=== PATIENT | male | born 1950 | race Caucasian/White ===

== ENCOUNTER 2020-08-16 07:53 | Outpatient (CLI) | payer MEDICARE, SELFPAY ==
--- NOTE | ~2020-08-16 | XR_ITS ---
XR lumbar spine 2-3V 08/16/2020 08:18 Indication: Low back pain for 2 years. Previous vertebral fracture. Procedure: 3 views lumbar spine Comparison: CT dated 03/28/2018 Findings: There are treated mild compression fractures of T11 and L1 with vertebroplasty changes. The re is disc narrowing at L3-4. Small ventral osteophytes at multiple levels. Mild lower lumbar facet h ypertrophy. No acute fracture is identified. There are cholecystectomy clips. Impression: 1: Chronic treated compression fractures of T11 and L1. 2: Mild lumbar spondylosis. Reviewed, dictated and finalized at location B. Impression: 1: Chronic treated compression fractures of T11 and L1. 2: Mild lumbar spondylosis.
== END 2020-08-16 07:54 | disposition home or self-care (01) ==
PROVIDERS: PCP Internal Medicine; Visit Provider Nurse Practitioner
DX: M54.5 Low back pain (principal); G89.29 Other chronic pain; S22.080A Wedge compression fracture of T11-T12 vertebra, initial encounter for closed fracture; M47.816 Spondylosis without myelopathy or radiculopathy, lumbar region
CPT/HCPCS: 72100

== ENCOUNTER 2021-12-19 16:09 | Emergency (ER) | payer MEDICARE, SELFPAY ==
--- NOTE | ~2021-12-19 | US_ITS ---
EXAMINATION: US venous doppler LE RT DATE: 12/19/2021 17:41 INDICATION: Right lower limb pain and swelling TECHNIQUE: Ruiz scale images without and with compression and Doppler images of the right lower extre mity veins were obtained. COMPARISON: 04/10/2018 FINDINGS: The right common femoral vein, profunda femoral vein, femoral vein, popliteal vein, peronea l trunk, posterior tibial veins, and greater saphenous vein are patent. IMPRESSION: 1. Patent right lower extremity veins. No evidence of deep venous thrombosis. Reviewed, dictated and finalized at location F. OO TECHNICIAN
[2021-12-19 16:22] VITALS: BP 179/76; PULSE 90; RESP 18; TEMP 36.6; O2SAT 100
--- NOTE | 2021-12-19 17:25 | ED.GENADULT ---
HPI - General Adult General Chief complaint: Extremity Problem,Nontraumatic Stated complaint: leg pain, r/o DVT Time Seen by Provider: 12/19/21 17:15 History of Present Illness HPI narrative: Patient is a 71-year-old gentleman who presents the emergency department with chief complaint of right leg pain. Patient reports that he has history of DVTs on the left lower extremity in the past in his left leg. The patient reports he is currently not on any anticoagulants reported that he noticed kind of an uncomfortable feeling in the posterior aspect of his right calf. Patient states due to his history of DVT he was concerned that he may have developed another 1 patient denies swelling denies shortness of breath denies chest pain. Related Data Home Medications Medication Instructions Recorded Confirmed aspirin 81 mg tablet,delayed 81 mg PO DAILY 01/24/20 01/29/21 release coenzyme Q10 100 mg capsule 100 mg PO DAILY 08/01/20 01/29/21 omega-3 fatty acids 1,000 mg 1,000 mg PO DAILY 08/01/20 01/29/21 capsule cholecalciferol (vitamin D3) 125 125 mcg PO DAILY 08/13/21 mcg (5,000 unit) capsule Allergies Allergy/AdvReac Type Severity Reaction Status Date / Time No Known Allergies Allergy Verified 12/19/21 16:24 Review of Systems Review of Systems: A 10 system review of systems was completed on the patient and is negative except for what is stated in the HPI. Nursing and ancillary documentation was reviewed. [facility] Past Medical History Medical History Actinic keratoses Anxiety Degenerative arthritis of knee, bilateral DM w/o complication type II History of CVA in adulthood Hx of optic neuritis Other and unspecified hyperlipidemia Recurrent deep vein thrombosis (DVT) Family History Family History Mother Family history of elevated blood lipids Father Family history of heart disease in male family member before age 55 Other Acute myocardial infarction Family history of coronary artery disease Social History Social History Smoking status: Former smoker Tobacco type: cigarettes Second hand tobacco smoke exposure: No Smoking end date: 11/29/00 Alcohol intake: current Substance use: never Substance use type: does not use Exam Narrative: GENERAL: Well-appearing, well-nourished, and in no acute distress. HEAD: Normocephalic, atraumatic. EYES: PERRLA and EOMI. ENT: Nares clear, no rhinorrhea or epistaxis. Mucous membranes moist. NECK: Supple. CHEST: Clear to auscultation. No respiratory distress. HEART: Regular rate and rhythm. No murmur heard. Normal peripheral pulses. ABDOMEN: Soft, nontender, nondistended, normal active bowel sounds. EXTREMITIES: Normal range of motion. No edema. SKIN: Warm, dry, no rash. NEURO: No focal deficits. Alert and oriented x3. PSYCH: Normal mood and affect. Course Vital Signs Vital signs: Vital Signs Temperature 36.6 C 12/19/21 16:22 Pulse Rate 90 12/19/21 16:22 Respiratory Rate 18 12/19/21 16:22 Blood Pressure 179/76 H 12/19/21 16:22 Pulse Oximetry 100 12/19/21 16:22 Temperature 36.6 C 12/19/21 16:22 Pulse Rate 90 12/19/21 16:22 Respiratory Rate 18 12/19/21 16:22 Blood Pressure 179/76 H 12/19/21 16:22 Pulse Oximetry 100 12/19/21 16:22 Medical Decision Making Vital Signs Vital Signs: Vital Signs Temperature 36.6 C 12/19/21 16:22 Pulse Rate 90 12/19/21 16:22 Respiratory Rate 18 12/19/21 16:22 Blood Pressure 179/76 H 12/19/21 16:22 Pulse Oximetry 100 12/19/21 16:22 Temperature 36.6 C 12/19/21 16:22 Pulse Rate 90 12/19/21 16:22 Respiratory Rate 18 12/19/21 16:22 Blood Pressure 179/76 H 12/19/21 16:22 Pulse Oximetry 100 12/19/21 16:22 Lab Data Result diagrams: 12/19/21 17:25
[2021-12-19 17:42] LABS: Basophils Percent Auto 0.6 % (0.2-1.2); Eosinophils Absolute Auto 0.4 K/mm3 (0-0.3); Eosinophils Percent Auto 5.5 % (0-4.4); Hematocrit 43.7 % (42.0-52.0); Hemoglobin 14.4 g/dL (14.0-18.0); Immature Granulocyte Absolute 0.02 K/mm3 (0.00-0.031); Immature Granulocyte Percent A 0.3 % (0-0.5); Lymphocytes Absolute Auto 2.11 K/mm3 (0.9-3.2); Lymphocytes Percent Auto 30.7 % (18.3-44.2); Mean Corpuscular Hemoglobin 30.6 pg (26-34); Mean Platelet Volume 9.8 fl (7.4-10.4); Monocytes Absolute Auto 0.5 K/mm3 (0.1-0.6); Monocytes Percent Auto 7.8 % (2.6-8.5); Neutrophils Absolute Auto 3.8 K/mm3 (1.3-6.7); Neutrophils Percent Auto 55.1 % (45.5-73.1); Platelet Count Result 226 k/mm3 (150-375); Red Cell Distribution Width 13.3 % (11.5-14.5); White Blood Count 6.9 K/mm3 (4.5-10.0)
[2021-12-19 17:51] LABS: Alanine Aminotransferase 27 U/L (4-50); Albumin Level 4.6 g/dL (3.5-5.1); Alkaline Phosphatase 59 U/L (38-126); Anion Gap 14 mmol/L (8-16); Aspartate Amino Transferase 38 U/L (17-59); Bilirubin,Total 0.6 mg/dL (0.2-1.3); Blood Urea Nitrogen 18 mg/dL (9-20); Calcium 9.8 mg/dL (8.4-10.2); Carbon Dioxide 23 mmol/L (22-30); Chloride 103 mmol/L (98-107); Estimated CRCL calculation 71 ml/min; Estimated Glomerular Filt Rate > 60; Glucose 116 mg/dL (65-110); Potassium 4.2 mmol/L (3.4-5.0); Sodium 140 mmol/L (137-145)
[2021-12-19 17:53] LABS: Prothrombin Time 13.4 Seconds (11.1-14.7)
== END 2021-12-19 18:22 | disposition home or self-care (01) ==
LOC: ANHED 18:12
PROVIDERS: Emergency Provider Emergency Medicine; PCP Internal Medicine
DX: M79.661 Pain in right lower leg (principal); M17.0 Bilateral primary osteoarthritis of knee; E11.9 Type 2 diabetes mellitus without complications; Z86.73 Personal history of transient ischemic attack (TIA), and cerebral infarction without residual deficits; E78.5 Hyperlipidemia, unspecified; Z79.82 Long term (current) use of aspirin; Z86.718 Personal history of other venous thrombosis and embolism; Z87.891 Personal history of nicotine dependence; Z79.84 Long term (current) use of oral hypoglycemic drugs
CPT/HCPCS: 36415; 80053; 85025; 85610; 93971; 99284

== ENCOUNTER 2022-09-23 08:07 | Outpatient (CLI) | payer MEDICARE, MEDICAID, SELFPAY ==
--- NOTE | 2022-10-08 08:59 | WPDSLEEPSTUD ---
Sleep Study Date of Study: 09/23/22 Ordering Provider: Ismael Bains DO Interpreting Physician: Kathrin Mishra MD Sleep Study Type: Split Polysomnogram Height: 1.75 m Weight: 115.212 kg Body Mass Index: 37.5 Neck Circumference (inches): 20 [place]: 13 Reason for Sleep Study Obstructive sleep apnea, current CPAP is no longer effective * 08/26/2012 - split night- severe obstructive sleep apnea, AHI 72.4, heavy snoring and multiple oxygen desaturation. Inadequate CPAP titration. * 10/13/2012 - BiPAP titration, difficult titration, final bilevel pressure . Sleep History Indra Melendez is a 72 year-old man with known sleep apnea for many years, use CPAP for a while and then started using it again for 10 years. Recently while using CPAP he has been waking every hour to hour and a half, going to the bathroom and then returning to sleep. He is exhausted during the day. He constantly snores loudly. He does not awaken from sleep feeling short of breath or with heartburn symptoms. He occasionally has trouble sleeping with a cold. He does not wake up gasping for breath at night. He occasionally sweats 6 excessively at night. He does not notice his heart pounding or beating irregularly at night. He is frequently falling asleep during the day, occasionally slow falling asleep involuntarily rarely falling asleep while driving. He does not have loss of muscle tone with strong emotion. He rarely has daytime difficulties due to excessive sleepiness. He does not feel paralyzed on waking or falling asleep. He frequently has vivid dreamlike scenes upon awakening or falling asleep. He does not feel afraid to go to sleep. He does not have nightmares. He frequently remembers his dreams. He frequently has racing thoughts. He rarely feels sad or depressed. He occasionally has anxiety. He rarely has muscular tension. He does not notice parts of his body jerking. He does not kick at night. He rarely has crawling and aching feelings in his legs. He does not have any kind of leg pain at night. He does not have morning jaw pain. He occasionally grinds his teeth at night. He is not awakened by pain at night. He frequently wakes up feeling stiff in the morning. He has fatigue, memory problems and dizziness. Normal bedtime is Twelve midnight, falling asleep within 10-15 minutes, waking 3-4 times at night for a trip to the bathroom, placed on the computer and then returns to sleep. Sometimes he may fall asleep within a few minutes or sometimes it may take 2 hours to return to sleep. He wakes between 6 and 7:00 a.m.. He estimates getting possibly 6 hours of sleep at night. He did rotating shift for many years. He takes naps in the afternoon or evening however a short nap is not refreshing. He sleepy in the morning for 3 hours or longer after waking. Habits: Smoked tobacco years ago. Caffeine 2 cups of coffee a day. Alcohol, 1 serving a month. [facility] Past Medical History Medical History (Updated 10/08/22 @ 09:03 by Kathrin Mishra MD) Actinic keratoses Anxiety Degenerative arthritis of knee, bilateral DM w/o complication type II History of CVA in adulthood Hx of optic neuritis JUNIOR (obstructive sleep apnea) Other and unspecified hyperlipidemia Recurrent deep vein thrombosis (DVT) Family History Family History Mother Family history of elevated blood lipids Father Family history of heart disease in male family member before age 55 Other Acute myocardial infarction Family history of coronary artery disease Social History Social History Smoking packs per day: 1 Smoking cigarettes per day: 20.0 Years smoked: 30 Smoking pack-years: 30.00 Smoking status: Former smoker Tobacco type: cigarettes Second hand tobacco smoke exposure: No Smoking end date: 11/29/00 Alcohol intake: current Substance
[2022-10-08 09:09] VITALS: BMI 37.5
--- NOTE | 2023-03-17 11:12 | SLEEP ---
pt has a sleep specialist candy on 03/30 and had to return his machine on 03/17 d/t noncompliance
== END 2022-09-24 07:15 | disposition home or self-care (01) ==
LOC: ANHCSM 08:11
PROVIDERS: PCP Internal Medicine; Visit Provider Internal Medicine
DX: G47.33 Obstructive sleep apnea (adult) (pediatric) (principal)
CPT/HCPCS: 95811